=== PATIENT | female | born 1975 | race American Indian/Alaskan Native ===

== ENCOUNTER 2018-01-29 13:07 | Outpatient (CLI) | payer OTHER ==
--- NOTE | 2018-02-03 13:05 | Magnetic Resonance Report ---
MRI PELVIS WITHOUTAND WITH CONTRAST: 01/29/18 13:07:00 CLINICAL: Pelvic pain. COMPARISON :None. TECHNIQUE: Sagittal, coronal and axial T1 and T2 fat sat sequences plus sagittal, coronal and axial postcontrast T1 fat sequences on a 1.5 [place]acey magnet. 12.0 cc of Multihance was injected intravenously for contrast portion of exam and consent was obtained prior to the administration of contrast. FINDINGS: An enlarged fibroid uterus measures 13.8 cm craniocaudal dimension by 10.9 cm AP dimension and 9.0 cm transverse dimension. The two largest fibroids are located intramural to the right of midline in the lower uterine segment and measure 5.6 x 5.3 cm and 5.0 x 4.5 cm.An intramural fundal fibroid to the right of midline measures 2.3 x 2.1 and a more lateral intramural right fundal fibroid measures 2.3 x 2.1 cm. All of the fibroids demonstrate roughly homogeneous enhancement postcontrast. The endometrium is normal and measures 9.0 mm AP thickness. A 2.3 cm dominant follicle of the left ovary. The left ovary measures 3.6 x 2.9 x 2.5 cm. A dominant follicle the right ovary measures 1 cm.The right ovary measures 2.6 x 2.4 x 1.0 cm. No adnexal mass. No free fluid. IMPRESSION: 1. Uterine leiomyomata with the two largest fibroids located to the right of midline in the lower uterine segment measuring 5.6 cm and 5.0 cm. 2. All of the fibroids demonstrate relatively uniform enhancement postcontrast. 3. Normal endometrium. 4. Normal ovaries with a 2.3 cm dominant follicle of the left ovary.
== END 2018-01-29 13:08 | disposition home or self-care (01) ==
LOC: SPVIMAG 13:07
PROVIDERS: ATTEND Radiology Vascular & Interventional Radiology
DX: D25.1 Intramural leiomyoma of uterus (principal)
CPT/HCPCS: 72197; A9577

== ENCOUNTER 2019-02-02 08:56 | Emergency (ER) | payer SELFPAY ==
[2019-02-02 09:08] VITALS: BP 156/97
--- NOTE | 2019-02-02 10:22 | Emergency Department Report ---
ED Recheck HPI - General Chief Complaint: Medical Clearance Stated Complaint: HIGH BLOOD PRESSURE /HIGH BLOOD SUGAR Time Seen by Provider: 02/02/19 09:58 Source: patient Mode of arrival: Ambulatory Limitations: No Limitations - History of Present Illness Initial Comments: 43-year-old female with history of hypertension and hypothyroidism presents to ED requesting refill on Synthroid, amlodipine, lisinopril, atenolol. Patient states she has been out of her medication for approximately 2 weeks. PCP: Dr Bernice QUICK Complaint: medication refill request -: week(s) (2) Returns Today for: request for prescription Context: ran out of medication Associated Symptoms: none - Related Data Previous Rx's Medication Instructions Recorded Last Taken Type Cyclobenzaprine [Flexeril] 10 mg PO BID PRN #20 tablet 11/14/18 Unknown Rx Menthol/Camphor [[place] 1 applicatio TP QID PRN #1 tube 11/14/18 Unknown Rx Ointment] Naproxen [Naprosyn TAB] 500 mg PO BID PRN #30 tablet 11/14/18 Unknown Rx Atenolol 50 mg PO DAILY #30 tablet 02/02/19 Unknown Rx Levothyroxine [Synthroid] 100 mcg PO QAM #30 tablet 02/02/19 Unknown Rx Lisinopril 20 mg PO DAILY #30 tablet 02/02/19 Unknown Rx amLODIPine [Norvasc] 5 mg PO DAILY #30 tab 02/02/19 Unknown Rx Allergies Allergy/AdvReac Type Severity Reaction Status Date / Time Penicillins Allergy Anaphylaxis Verified 11/13/18 21:01 Sulfa (Sulfonamide Allergy Anaphylaxis Verified 11/13/18 21:00 Antibiotics) ED Review of Systems ROS: Stated complaint: HIGH BLOOD PRESSURE /HIGH BLOOD SUGAR Other details as noted in HPI Comment: All other systems reviewed and negative Respiratory: denies: shortness of breath Cardiovascular: denies: chest pain Neurological: denies: headache ED Past Medical Hx - Past Medical History Previous Medical History?: Yes Hx Hypertension: Yes Additional medical history: Hypothyroid Thyroid removed - Surgical History Past Surgical History?: Yes Additional Surgical History: Thyroidectomy - Social History Smoking Status: Never Smoker Substance Use Type: None - Medications Home Medications: Home Medications Medication Instructions Recorded Confirmed Last Taken Type Cyclobenzaprine [Flexeril] 10 mg PO BID PRN #20 tablet 11/14/18 Unknown Rx Menthol/Camphor [[place] 1 applicatio TP QID PRN #1 tube 11/14/18 Unknown Rx Ointment] Naproxen [Naprosyn TAB] 500 mg PO BID PRN #30 tablet 11/14/18 Unknown Rx Atenolol 50 mg PO DAILY #30 tablet 02/02/19 Unknown Rx Levothyroxine [Synthroid] 100 mcg PO QAM #30 tablet 02/02/19 Unknown Rx Lisinopril 20 mg PO DAILY #30 tablet 02/02/19 Unknown Rx amLODIPine [Norvasc] 5 mg PO DAILY #30 tab 02/02/19 Unknown Rx ED Physical Exam - General Limitations: No Limitations General appearance: alert, in no apparent distress - Head Head exam: Present: atraumatic, normocephalic - Eye Eye exam: Present: normal appearance - ENT ENT exam: Present: mucous membranes moist - Neck Neck exam: Present: normal inspection - Respiratory Respiratory exam: Present: normal lung sounds bilaterally. Absent: respiratory distress - Cardiovascular Cardiovascular Exam: Present: regular rate, normal rhythm - GI/Abdominal GI/Abdominal exam: Absent: distended - Extremities Exam Extremities exam: Present: normal inspection - Neurological Exam Neurological exam: Present: alert, oriented X3 - Psychiatric Psychiatric exam: Present: normal affect, normal mood - Skin Skin exam: Present: warm, dry, intact, normal color. Absent: rash ED Course Vital Signs 02/02/19 09:07 Temperature 98.0 F Pulse Rate 79 Respiratory 16 Rate Blood Pressure 156/97 O2 Sat by Pulse 96 Oximetry Critical care attestation.: If time is entered above; I have spent that time in minutes in the direct care of this critically ill patient, excluding procedure time. ED Disposition Clinical Impression: Medication refill Disposition: DC-01 TO HOME OR SELFCARE Is pt being admited?: No Condition: Stable Instructions: Hypertension (ED) Prescriptions: Atenolol 50 mg PO DAILY #30 tablet Lisinopril 20 mg PO DAILY #30 tablet amLODIPine [Norvasc] 5 mg PO DAILY #30 tab Levothyroxine [Synthroid] 100 mcg PO QAM #30 tablet Referrals: PRIMARY CARE, [Referring] - 3-5 Days Time of Disposition: 10:21
== END 2019-02-02 10:43 | disposition home or self-care (01) ==
LOC: ED 08:56
DX: I10 Essential (primary) hypertension (principal); Z76.0 Encounter for issue of repeat prescription; Z88.2 Allergy status to sulfonamides; Z88.0 Allergy status to penicillin
CPT/HCPCS: 99282

== ENCOUNTER 2019-05-16 22:02 | Emergency (ER) | payer OTHER ==
[2019-05-17 00:21] LABS: Bilirubin,Urine NEG (Negative); Blood,Urine MOD (Negative); Color,Urine Yellow (Yellow); Mucus,Urine 1+ /HPF; Protein,Urine <15 mg/dL mg/dL (Negative)
--- NOTE | 2019-05-17 01:23 | Emergency Department Report ---
ED General Adult HPI - General Chief complaint: Headache Stated complaint: HBP/LOWER STOMACH AND BACK PAIN Time Seen by Provider: 05/17/19 00:15 Source: patient Mode of arrival: Ambulatory Limitations: No Limitations - History of Present Illness Initial comments: Patient is a 43-year-old -German female with a history of hypertension and hypothyroidism who presents to the ED with complaint of acute onset 6 and headache and elevated blood pressure for the last 2 days. Patient states that she did not have her blood pressure medications 2 weeks ago. Patient states that she also had urinary frequency and urgency with dysuria the last 2 days. Patient denies dizziness, chest pain, shortness of breath, headache, abdominal pain, back pain, fever, chills, nausea and vomiting or vaginal bleeding. MD Complaint: headache, dysuria, urinary urgency and frequency -: Sudden, days(s) (2) Location: head, genitals Radiation: non-radiation Severity scale (0 -10): 4 Quality: aching Consistency: intermittent Improves with: none Worsens with: none Associated Symptoms: denies other symptoms, headaches. denies: confusion, chest pain, cough, diaphoresis, fever/chills, loss of appetite, malaise, nausea/vomiting, rash, seizure, shortness of breath, syncope, weakness Treatments Prior to Arrival: none - Related Data Previous Rx's Medication Instructions Recorded Last Taken Type Cyclobenzaprine [Flexeril] 10 mg PO BID PRN #20 tablet 11/14/18 Unknown Rx Menthol/Camphor [[place] 1 applicatio TP QID PRN #1 tube 11/14/18 Unknown Rx Ointment] Naproxen [Naprosyn TAB] 500 mg PO BID PRN #30 tablet 11/14/18 Unknown Rx Atenolol 50 mg PO DAILY #30 tablet 02/02/19 Unknown Rx Lisinopril 20 mg PO DAILY #30 tablet 02/02/19 Unknown Rx Atenolol [Tenormin] 50 mg PO DAILY #30 tab 05/17/19 Unknown Rx Levothyroxine [Synthroid] 100 mcg PO QAM #30 tablet 05/17/19 Unknown Rx Lisinopril [Zestril TAB] 20 mg PO QDAY #30 tablet 05/17/19 Unknown Rx Nitrofurantoin [place]/M-Cryst 100 mg PO Q12HR #14 capsule 05/17/19 Unknown Rx [Macrobid CAP] amLODIPine [Norvasc] 5 mg PO DAILY #30 tab 05/17/19 Unknown Rx Allergies Allergy/AdvReac Type Severity Reaction Status Date / Time Penicillins Allergy Anaphylaxis Verified 11/13/18 21:01 Sulfa (Sulfonamide Allergy Anaphylaxis Verified 11/13/18 21:00 Antibiotics) ED Review of Systems ROS: Stated complaint: HBP/LOWER STOMACH AND BACK PAIN Other details as noted in HPI Constitutional: denies: chills, fever Eyes: denies: eye pain, eye discharge, vision change ENT: denies: ear pain, throat pain Respiratory: denies: cough, shortness of breath, wheezing Cardiovascular: denies: chest pain, palpitations Endocrine: no symptoms reported Gastrointestinal: denies: abdominal pain, nausea, diarrhea Genitourinary: urgency, dysuria, frequency. denies: discharge Musculoskeletal: denies: back pain, joint swelling, arthralgia Skin: denies: rash, lesions Neurological: headache. denies: weakness, paresthesias Psychiatric: denies: anxiety, depression Hematological/Lymphatic: denies: easy bleeding, easy bruising ED Past Medical Hx - Past Medical History Previous Medical History?: Yes Hx Hypertension: Yes Additional medical history: Hypothyroid Thyroid removed - Surgical History Past Surgical History?: Yes Additional Surgical History: Thyroidectomy - Social History Smoking Status: Never Smoker Substance Use Type: None - Medications Home Medications: Home Medications Medication Instructions Recorded Confirmed Last Taken Type Cyclobenzaprine [Flexeril] 10 mg PO BID PRN #20 tablet 11/14/18 Unknown Rx Menthol/Camphor [[place] 1 applicatio TP QID PRN #1 tube 11/14/18 Unknown Rx Ointment] Naproxen [Naprosyn TAB] 500 mg PO BID PRN #30 tablet 11/14/18 Unknown Rx Atenolol 50 mg PO DAILY #30 tablet 02/02/19 Unknown Rx Lisinopril 20 mg PO DAILY #30 tablet 02/02/19 Unknown Rx Atenolol [Tenormin] 50 mg PO DAILY #30 tab 05/17/19 Unknown Rx Levothyroxine [Synthroid] 100 mcg PO QAM #30 tablet 05/17/19 Unknown Rx Lisinopril [Zestril TAB] 20 mg PO QDAY #30 tablet 05/17/19 Unknown Rx Nitrofurantoin [place]/M-[place] 100 mg PO Q12HR #14 capsule 05/17/19 Unknown Rx [Macrobid CAP] amLODIPine [Norvasc] 5 mg PO DAILY #30 tab 05/17/19 Unknown Rx ED Physical Exam - General Limitations: No Limitations General appearance: alert, in no apparent distress - Head Head exam: Present: atraumatic, normocephalic, normal inspection - Eye Eye exam: Present: normal appearance, PERRL, EOMI Pupils: Present: normal accommodation - ENT ENT exam: Present: normal exam, normal orophraynx, mucous membranes moist, TM's normal bilaterally, normal external ear exam - Neck Neck exam: Present: normal inspection, full ROM - Respiratory Respiratory exam: Present: normal lung sounds bilaterally. Absent: respiratory distress, wheezes, rales, rhonchi, chest wall tenderness, accessory muscle use, decreased breath sounds, prolonged expiratory - Cardiovascular Cardiovascular Exam: Present: regular rate, normal rhythm, normal heart sounds. Absent: systolic murmur, diastolic murmur, rubs, gallop - GI/Abdominal GI/Abdominal exam: Present: soft, normal bowel sounds. Absent: distended, tenderness, rebound, hyperactive bowel sounds, hypoactive bowel sounds, organomegaly, mass - Rectal Rectal exam: Present: deferred - Extremities Exam Extremities exam: Present: normal inspection, full ROM, normal capillary refill - Back Exam Back exam: Present: normal inspection, full ROM. Absent: CVA tenderness (L), muscle spasm, paraspinal tenderness, vertebral tenderness - Neurological Exam Neurological exam: Present: alert, oriented X3, CN II-XII intact, normal gait, reflexes normal - Psychiatric Psychiatric exam: Present: normal affect, normal mood - Skin Skin exam: Present: warm, dry, intact, normal color. Absent: rash ED Course Vital Signs 05/16/19 22:26 Temperature 98.1 F Pulse Rate 84 Respiratory 18 Rate Blood Pressure 187/97 O2 Sat by Pulse 96 Oximetry - Reevaluation(s) Reevaluation #1: 05/17/19 01:23 Patient is alert and oriented 3 and is not in distress but hypertensive in triage. Urinalysis shows some hematuria. The patient had stated that she ran out of medications. Patient medications were reviewed and renewed and she was advised to follow-up with her primary care physician in 7-10 days for reevaluation or return to the ED immediately if symptoms get worse. ED Medical Decision Making - Medical Decision Making 43 yo AA female presented with elevated BP, dysuria, urinary urgency and frequency. Patient is alert and oriented 3 and is not in distress but hypertensive in triage. Urinalysis shows some hematuria. The patient had stated that she ran out of medications. Patient medications were reviewed and renewed and she was advised to follow-up with her primary care physician in 7-10 days for reevaluation or return to the ED immediately if symptoms get worse. 05/17/19 01:24 - Differential Diagnosis acute UTI, Tension type headache, Uncontrolled HTN Critical care attestation.: If time is entered above; I have spent that time in minutes in the direct care of this critically ill patient, excluding procedure time. ED Disposition Clinical Impression: Uncontrolled stage 2 hypertension, Dysuria, Encounter for medication refill Disposition: TO HOME OR SELFCARE Is pt being admited?: No Does the pt Need Aspirin: No Condition: Stable Instructions: Hypertension (ED), Dysuria (ED) Additional Instructions: Take medications with food, drink plenty of fluids and follow up with [facility] in 7-10 days for reevaluation. Return to the ED immediately if symptoms get worse. Prescriptions: Nitrofurantoin [place]/M-Cryst [Macrobid CAP] 100 mg PO Q12HR #14 capsule amLODIPine [Norvasc] 5 mg PO DAILY #30 tab Levothyroxine [Synthroid] 100 mcg PO QAM #30 tablet Atenolol [Tenormin] 50 mg PO DAILY #30 tab Lisinopril [Zestril TAB] 20 mg PO QDAY #30 tablet Referrals: JACOBO INGRAM MD [Primary Care Provider] - 3-5 Days Time of Disposition: 01:29 Print Language: [place] CITIZEN
[2019-05-17 01:51] VITALS: BP 168/104
== END 2019-05-17 01:49 | disposition home or self-care (01) ==
LOC: ED 22:02
DX: I15.9 Secondary hypertension, unspecified (principal); R30.0 Dysuria; E89.0 Postprocedural hypothyroidism; Z76.0 Encounter for issue of repeat prescription; Z88.0 Allergy status to penicillin; Z88.2 Allergy status to sulfonamides; Z79.899 Other long term (current) drug therapy
CPT/HCPCS: 81001; 99283